=== PATIENT | female | born 1975 | race African-American/Black ===

== ENCOUNTER 2019-11-23 14:06 | Emergency (ER) | payer OTHER ==
[~2019-11-23] VITALS: Ht 170.2 cm; Wt 63.5 kg
[~2019-11-23 14:06] MED LIST: ACETAMINOPHEN325 M1 PO; COMPAZINE10 MG PO; FLAGYL500 MG PO; ONDANSETRON HCL4 M2 PO; PHENADOZ25 MG RC; PHENERGAN 25 MG25 M1 PO; PHENERGAN25 MG RE; VICODIN 5-5001 EACH PO
[2019-11-23 14:34] LABS: URINE BLOOD 3+ (Negative); URINE CLARITY SL CLOUDY; URINE COLOR YELLOW; URINE GLUCOSE-RANDOM* NEGATIVE (Negative); URINE KETONES TRACE (Negative); URINE NITRITE-REFLEX NEGATIVE (Negative); URINE PROTEIN (DIPSTICK) 1+ (Negative); URINE SPECIFIC GRAVITY 1.025 (1.005-1.035); URINE UROBILINOGEN 0.2 E.U./dl (0.2-1.0)
[2019-11-23 14:36] LABS: URINE LEUKOCYTES-REFLEX 1+ (Negative)
[2019-11-23 14:37] LABS: ICTOTEST (BILI CONFIRMATORY) Negative (Negative); URINE BILIRUBIN NEGATIVE (Negative)
[2019-11-23 14:45] LABS: SQUAMOUS 0-3 Few /LPF (0-3)
[2019-11-23 14:46] LABS: BACTERIA-REFLEX 1-9 Few /HPF (None Seen); CASTS None Seen /LPF (None Seen); CRYSTALS None Seen /LPF (None Seen); URINE WBC-REFLEX 6-15 Few /HPF (0-5)
[2019-11-23 14:47] LABS: URINE RBC 0-2 Rare /HPF (0-2)
[2019-11-23] MEDS ORDERED: FLAGYL500 M1 PO (15:15)
[2019-11-23 15:53] VITALS: BP 158/89
== END 2019-11-23 15:53 | disposition home or self-care (01) ==
LOC: ER 14:06
PROVIDERS: Nurse Practitioner Family
DX: A59.9 Trichomoniasis, unspecified (principal); I10 Essential (primary) hypertension; F17.210 Nicotine dependence, cigarettes, uncomplicated